=== PATIENT | male | born 1990 | race Caucasian/White ===

== ENCOUNTER 2022-09-02 21:06 | Emergency (ER) | payer OTHER ==
[~2022-09-02] VITALS: Ht 157.5 cm; Wt 59.0 kg
[2022-09-02 21:12] VITALS: BP 125/60; PULSE 96; RESP 18; TEMP 96.5; O2SAT 96
[2022-09-02 21:25] VITALS: BP 125/60; PULSE 96; RESP 18; TEMP 96.5; O2SAT 96
--- NOTE | 2022-09-02 21:25 | NUR ---
Patient discharged with v/s stable. Written and verbal after care instructions given and explained. Patient verbalized understanding. Ambulatory with in custody. Accompanied by [facility]. All questions addressed prior to discharge. Advised to follow up with PMD.
--- NOTE | 2022-09-02 21:25 | NUR ---
Seen and evaluated by MAHAMED
== END 2022-09-02 21:25 ==
LOC: MED 21:06
DX: V49.88XA Car occupant (driver) (passenger) injured in other specified transport accidents, initial encounter; Y93.89 Activity, other specified; Y92.89 Other specified places as the place of occurrence of the external cause; Y99.8 Other external cause status
CPT/HCPCS: 99283